=== PATIENT | male | born 1970 | race Caucasian/White ===

== ENCOUNTER 2019-05-20 11:11 | Day surgery (SDC) | payer OTHER ==
[2019-05-20] MEDS ORDERED: LACTATED RINGER'S 1,000 ML IV (12:30)
[2019-05-20] MEDS ORDERED: OXYCODONE/ACETAMINOPHEN (5/325) TAB PO (13:30)
[2019-05-20] MEDS ORDERED: MEPERIDINE 25 MG INJ IV (13:30)
[2019-05-20] MEDS ORDERED: ONDANSETRON 4 MG INJ IV (13:30)
[2019-05-20] MEDS ORDERED: HYDROmorphONE 1 MG/5 ML IV SYRINGE IV ×2 (13:30)
[2019-05-20] MEDS ORDERED: DIPHENHYDRAMINE 50 MG INJ IV (13:30)
[2019-05-20] MEDS ORDERED: PROCHLORPERAZINE 10 MG INJ IV (13:30)
[2019-05-20] MEDS ORDERED: FENTAnyl 50 MCG/ML VIAL ×2 (13:55→14:56)
[2019-05-20] MEDS ORDERED: MIDAZOLAM 1 MG/ML 2 ML INJ (13:55)
[2019-05-20 14:02] LABS: ADD MAN DIFF? NO
[2019-05-20] MEDS ORDERED: CLINDAMYCIN 900 MG (PMX) 50 ML IVPB (14:04)
[2019-05-20 14:05] LABS: ABNORMAL IP MESSAGE 1; BASOPHILS % 0.8 % (0.0-2.0); EOSINOPHILS # 0.1 10^3/ul (0.0-0.5); EOSINOPHILS % 2.3 % (0.0-7.0); HEMATOCRIT 35.4 % (42.0-52.0); HEMOGLOBIN 9.3 g/dl (14.0-18.0); LYMPHOCYTES # 1.7 10^3/ul (0.8-2.9); LYMPHOCYTES % 34.9 % (15.0-51.0); MEAN CORPUSCULAR HEMOGLOBIN 16.8 pg (29.0-33.0); MEAN CORPUSCULAR HGB CONC 26.3 g/dl (32.0-37.0); MEAN CORPUSCULAR VOLUME 63.8 fl (82.0-101.0); MONOCYTE # 0.5 10^3/ul (0.3-0.9); MONOCYTES % 9.4 % (0.0-11.0); NEUTROPHIL # 2.5 10^3/ul (1.6-7.5); NEUTROPHILS % 52.4 % (39.0-77.0); PLATELET COUNT 253 10^3/UL (140-415); POSITIVE DIFF @See below; RED BLOOD COUNT 5.55 10^6/ul (4.70-6.10); RED CELL DISTRIBUTION WIDTH 19.4 % (11.5-14.5)
[2019-05-20 14:05] LABS: WHITE BLOOD COUNT 4.8 10^3/ul (4.8-10.8)
[2019-05-20] MEDS ORDERED: SUCCINYLCHOLINE CHLORIDE 100 MG/5 ML SYG IV (14:05)
[2019-05-20] MEDS ORDERED: PROPOFOL 20 ML (14:05)
[2019-05-20] MEDS ORDERED: DEXAMETHASONE 4 MG/ML 5 ML INJ (14:05)
[2019-05-20] MEDS ORDERED: LIDOCAINE 2% (SDV) 5 ML INJ (14:05)
[2019-05-20] MEDS ORDERED: ONDANSETRON 4 MG INJ (14:05)
[2019-05-20 14:08] LABS: HOLD TRANSMISSIONS 1
[2019-05-20] MEDS: LIDOCAINE 1% (MDV) 20 ML INJ INJ (14:21)
[2019-05-20 14:47] LABS: PARTIAL THROMBOPLASTIN TIME 29.2 Sec (23.0-35.0)
[2019-05-20 14:49] LABS: INR 0.94; PROTIME 12.7 Sec (11.9-14.9)
[2019-05-20] MEDS: CHLORHEXIDINE GLUCONATE 15 ML UD CUP MT (15:09)
[2019-05-20] MEDS: HYDROmorphONE 1 MG/5 ML IV SYRINGE IV (15:41)
[2019-05-20] MEDS: FENTAnyl 50 MCG/ML VIAL IV (15:41)
== END 2019-05-20 16:46 | disposition home or self-care (01) ==
LOC: SDS 11:11
DX: K06.8 Other specified disorders of gingiva and edentulous alveolar ridge (principal)
CPT/HCPCS: 41827; 85025; 85610; 85730; 88307